=== PATIENT | female | born 1970 | race Caucasian/White ===

== ENCOUNTER 2018-05-10 18:05 | Outpatient (CLI) | payer OTHER ==
--- NOTE | 2018-05-10 20:16 | RAD ---
SUPINE ABDOMEN: 05/10/18 INDICATION: IUD localization. Bowel gas pattern unremarkable. There is no evidence of IUD or other radiopaque foreign body. Osseous structures are unremarkable. IMPRESSION: Unremarkable exam. No evidence of IUD or other radiopaque foreign bodies. POS: [facility]
== END 2018-05-10 18:06 | disposition home or self-care (01) ==
LOC: SCSRAD 18:05
PROVIDERS: ATTEND Obstetrics & Gynecology
DX: Z30.9 Encounter for contraceptive management, unspecified (principal); N93.9 Abnormal uterine and vaginal bleeding, unspecified
CPT/HCPCS: 74018

== ENCOUNTER 2018-06-02 00:27 | Outpatient (CLI) | payer OTHER ==
[2018-06-02 16:17] LABS: BHCG - Serum Negative (NEGATIVE); Pregs Control Background? CLEAR/WHITE (CLR/WHITE); Pregs Control Bar Appear? YES (CONTROL BAR)
== END 2018-06-02 00:28 | disposition home or self-care (01) ==
LOC: LABBT 00:27
PROVIDERS: ATTEND Obstetrics & Gynecology
DX: Z01.812 Encounter for preprocedural laboratory examination (principal)
CPT/HCPCS: 84703

== ENCOUNTER 2018-06-06 07:56 | Inpatient (IN) | payer OTHER ==
[2018-06-02 15:22] VITALS: BMI 37.4
[2018-06-02 16:12] LABS: Hemoglobin 10.3 g/dL (12.0-16.0); Mean Corpuscular HGB CONC 33.2 g/dL (32.0-36.0); Mean Corpuscular Hemoglobin 29.5 pg (27.0-31.0); Mean Corpuscular Volume 88.9 fL (78.0-98.0); Mean Platelet Volume 8.5 fL (7.4-10.4); Platelet Count 319 thou/uL (130-400); RBC Distribution Width 13.7 % (11.5-14.5); White Blood Cell (WBC) Count 7.7 thou/uL (4.8-10.8)
[2018-06-06] MEDS ORDERED: Gabapentin 300 MG CAP ONE (08:16)
[2018-06-06] MEDS ORDERED: Famotidine/PF 20 mg/2ml Vial ONE (08:17)
[2018-06-06] MEDS ORDERED: Oxymetazoline HCl 0.05% ( 15 ML ) ONE (08:17)
[2018-06-06] MEDS ORDERED: Acetaminophen 650 MG/20.3 ML UDCUP ONE (08:18)
[2018-06-06] MEDS ORDERED: CeleCOXIB 100 MG CAP ONE (08:18)
[2018-06-06 11:35] LABS: #Basophils 0.1 thou/uL (0.0-0.2); #Eosinphils 0.1 thou/uL (0.0-0.7); #Monocytes 0.4 thou/uL (0.11-0.59); #Neutrophils 3.7 thou/uL (1.40-6.50); %Basophils 0.9 % (0.0-1.0); %Lymphocytes 31.9 % (21.0-51.0); %Monocytes 6.8 % (0.0-10.0); %Neutrophils 58.3 % (42.0-75.0); Hemoglobin 9.8 g/dL (12.0-16.0); Mean Corpuscular HGB CONC 32.7 g/dL (32.0-36.0); Mean Corpuscular Volume 88.9 fL (78.0-98.0); Mean Platelet Volume 8.2 fL (7.4-10.4); Platelet Count 301 thou/uL (130-400); RBC Distribution Width 13.5 % (11.5-14.5); Red Blood Cell (RBC) Count 3.38 mill/uL (4.20-5.40); White Blood Cell (WBC) Count 6.3 thou/uL (4.8-10.8)
[2018-06-06] MEDS ORDERED: Bupivacaine HCl 0.5%/Epinephrine 1:200,000/PF 30 ml Vial ONE (11:37)
[2018-06-06] MEDS ORDERED: Fentanyl 100 MCG/2 ML VIAL ONE ×3 (11:43→14:15)
[2018-06-06] MEDS ORDERED: Midazolam HCl 2 mg/2 ml Vial ONE (11:44)
[2018-06-06] MEDS ORDERED: Zolpidem Tartrate 5 MG TAB PO PRN (13:53)
[2018-06-06] MEDS ORDERED: Ondansetron PF 4 MG/2 ML Vial IVP PRN (13:53)
[2018-06-06] MEDS ORDERED: Bisacodyl 10 MG SUPP PR PRN (13:53)
[2018-06-06] MEDS ORDERED: Simethicone Chewable 80 MG TAB PO PRN (13:53)
[2018-06-06] MEDS ORDERED: Promethazine HCl 25 MG/ML VIAL IM PRN (13:53)
[2018-06-06] MEDS ORDERED: HYDROcodone/Acetaminophen 5/325 mg Tablet PO PRN ×2 (13:53)
[2018-06-06] MEDS ORDERED: Acetaminophen 325 MG TAB PO PRN (13:53)
[2018-06-06] MEDS ORDERED: diphenhydrAMINE 25 MG CAP PO PRN (13:53)
[2018-06-06] MEDS ORDERED: Promethazine HCl 25 MG/ML VIAL ONE (14:04)
[2018-06-06] MEDS ORDERED: Lidocaine 1% PF 5 ML VIAL ONE (16:44)
[2018-06-06] MEDS ORDERED: diphenhydrAMINE 50 MG/ML VIAL ONE (16:44)
[2018-06-06] MEDS ORDERED: PROPOFOL 200 MG/20 ML VIAL ONE (16:44)
[2018-06-06] MEDS ORDERED: Rocuronium Bromide 10 MG/ML (10ML VIAL) ONE (16:44)
[2018-06-06] MEDS ORDERED: Metoclopramide HCl 10 MG/2 ML VIAL ONE (16:44)
[2018-06-06] MEDS ORDERED: Glycopyrrolate 0.2 MG/ML 5 ML SYRINGE ONE (16:44)
[2018-06-06] MEDS ORDERED: Ondansetron PF 4 MG/2 ML Vial ONE (16:44)
[2018-06-06] MEDS: Ibuprofen 800 MG TAB PO SCH ×2 (18:22→22:35)
[2018-06-06] MEDS: Lactated Ringer's 1,000 ML IV SCH (20:23)
[2018-06-07 05:26] VITALS: TEMP 98.3
[2018-06-07] MEDS: Ibuprofen 800 MG TAB PO SCH (06:19)
[2018-06-07] MEDS: Lactated Ringer's 1,000 ML IV SCH ×2 (07:24→07:26)
--- NOTE | 2018-06-07 07:44 | OP ---
DATE OF PROCEDURE: 06/06/2018 PREOPERATIVE DIAGNOSES: 1. Abnormal uterine bleeding, suspected adenomyosis. 2. Anemia. POSTOPERATIVE DIAGNOSES: 1. Abnormal uterine bleeding, suspected adenomyosis. 2. Anemia. PROCEDURES PERFORMED: Robotic-assisted total laparoscopic hysterectomy with bilateral salpingectomy. IMPORT EXPORT CLERK: Lourdes Banegas MD COMPLICATIONS: None. ESTIMATED BLOOD LOSS: 50 mL. URINARY OUTPUT: 100 mL. IV FLUIDS: 1200 mL. ANESTHESIA: General. SPECIMENS: Uterus, cervix, and bilateral fallopian tubes. FINDINGS: Normal-appearing external genitalia. Normal vaginal and cervical epithelium, 8 to 9 cm uterus. Moderate amount of retrograde menses noted in the peritoneal cavity in the cul-de-sac approximately 15 to 20 mL. Normal-appearing bilateral fallopian tubes and ovaries. Hemostasis at the completion of procedure and moderate adhesions from the dome of the bladder to the lower uterine segment. INDICATIONS FOR THE PROCEDURE: Ms. Maritza Kennedy is a 47-year-old, G1 , P1, who presented to clinic with history of new onset abnormal uterine bleeding. The patient underwent an ultrasound was suggestive of possible adenomyosis, otherwise normal in appearance and she underwent endometrial biopsy with normal pathology. The patient underwent medical management, which failed and desired definitive surgical management with a hysterectomy. The patient was counseled and consented for robotic-assisted total laparoscopic hysterectomy with bilateral salpingectomy. DESCRIPTION OF PROCEDURE: The patient was brought to the operating room. She was placed under general anesthesia. The patient was placed in dorsal lithotomy position using Greyson stirrups. Her arms were appropriately tucked. She was prepped and draped in a sterile fashion. An official time-out was performed. She was given Ancef 2 g for surgical prophylaxis. A single-sided speculum was placed in the vagina, and the anterior aspect of the cervix was grasped using single-tooth tenaculum, and the uterus was sounded to approximately 8.5 cm. A HARVEY manipulator was then appropriately secured using an 8 cm length and 4 cm cup. The bladder was drained, and Foster catheter with a backfill syringe was then placed. Gloves were exchanged, and attention was turned to the abdomen. A supraumbilical incision was made using the scalpel, and the Veress needle was inserted into the peritoneal cavity noting a normal pressure. A 12-mm trocar was then inserted at this site. The robotic camera was inserted, and the patient was placed in Trendelenburg position, noting the findings above. Surface Plate Inspector ports were then placed using two 8 mm robotic ports and an 11 mm speech therapy assistant port. An 8 and 11 were placed on the right aspect of the abdomen, and an 8 mm port was placed in the left aspect of the abdomen. All were placed using local anesthetic and with direct visualization, the robot was then appropriately docked to the patient. The monopolar scissors and bipolar fenestrated forceps were then placed under direct visualization. The hysterectomy was begun first by performing left salpingectomy, working from distal to proximal end completely removing the fallopian tube. The left round ligament was then identified, coagulated, and transected allowing entrance into the broad ligament. The left utero-ovarian ligament was coagulated and transected as well. The posterior aspect of the peritoneum was then undermined and transected down to the level of the uterosacral ligament, identifying the course of the ureter during this process. The dense adhesions on the anterior aspect to the bladder were then meticulously dissected on the left aspect using a blunt and sharp dissection. Attention was then turned over to the right aspect, where a right salpingectomy was also performed from distal to proximal completely removing the fallopian tube and the right round ligament was also coagulated and transected allowing entrance into the broad ligament, and the right utero-ovarian ligament was also coagulated and transected creating hemostasis, and the posterior leaf of the peritoneum was also reflected down toward the level of the uterosacral ligament, allowing the lateral reflection of the ureter. The attention was then turned to the anterior aspect, where the scar tissue was located from her previous . Meticulous dissection was performed, and the bladder was back filled twice to allow for delineation of the bladder dome versus adhesive disease. Once the adhesions were transected, the cervicovaginal junction was much easier to identify. The uterine vessels were then skeletonized bilaterally. The left uterine vessels were then coagulated multiple times and transected and the same was performed to the right uterine vessels. The colpotomy was performed in circumferential fashion completely the vagina from the cervical tissue. The uterus and cervix were then delivered through the vagina along with the HARVEY manipulator. The pelvis was irrigated and cleared of all clot and debris. There were some small areas of bleeding along the left aspect required additional cautery. The cuff was then closed in a running fashion using 2-0 Stratafix suture. The needle was removed. The pelvis was then irrigated and cleared of all clot and debris. The instruments were removed. The robot was undocked from the patient. The abdomen was deflated. The patient was taken out of Trendelenburg position, and the trocars were removed. The fascia of the 12 mm camera port was then closed using a [id number] stitch with 0 Vicryl, and the skin was closed using 4-0 Monocryl and Dermabond. The vagina was evaluated noting hemostasis, and the patient was then placed back in supine position. She was extubated without difficulty and transferred to the recovery room in hemodynamically stable condition. All counts were correct x2. Job ID: [id number] MTDD
[2018-06-07 07:45] VITALS: BP 136/70
[2018-06-07 07:59] LABS: #Basophils 0.1 thou/uL (0.0-0.2); #Eosinphils 0.2 thou/uL (0.0-0.7); #Lymphocytes 2.2 thou/uL (1.20-3.40); #Monocytes 0.6 thou/uL (0.11-0.59); %Basophils 0.7 % (0.0-1.0); %Eosinophils 1.9 % (0.0-10.0); %Lymphocytes 27.2 % (21.0-51.0); %Monocytes 7.9 % (0.0-10.0); %Neutrophils 62.3 % (42.0-75.0); Mean Corpuscular HGB CONC 33.2 g/dL (32.0-36.0); Mean Corpuscular Hemoglobin 29.4 pg (27.0-31.0); Mean Corpuscular Volume 88.7 fL (78.0-98.0); Mean Platelet Volume 7.6 fL (7.4-10.4); Platelet Count 271 thou/uL (130-400); RBC Distribution Width 13.6 % (11.5-14.5); Red Blood Cell (RBC) Count 3.07 mill/uL (4.20-5.40); White Blood Cell (WBC) Count 8.1 thou/uL (4.8-10.8)
[2018-06-07 08:15] LABS: Anion Gap 11 mmol/L (10-20); BUN (Urea Nitrogen) 8 mg/dL (7.0-18.7); Calc. Creatinine Clearance 126 mL/min (70-130); Calcium 8.7 mg/dL (7.8-10.44); Carbon Dioxide 27 mmol/L (22-29); Chloride 104 mmol/L (98-107); Estimated GFR-MDRD 68; Glucose 114 mg/dL (70-105); Potassium 4.1 mmol/L (3.5-5.1); Sodium 138 mmol/L (136-145)
--- NOTE | 2018-06-07 11:51 | PRG ---
DATE OF SERVICE: 06/07/2018 HISTORY OF PRESENT ILLNESS: Postoperative day #1, status post robotic-assisted total laparoscopic hysterectomy with bilateral salpingectomy. SUBJECTIVE: The patient reports mild pain overnight and controlled with oral medications. She denies any vaginal bleeding. The patient is ambulating, voiding, and passing flatus and has also had a small bowel movement. She denies any complaints this morning. Denies any chest pain, palpitations, dizziness, or other concerns. OBJECTIVE: VITAL SIGNS: Blood pressure 136/70, pulse is 64, respiratory rate is 20, oxygen saturation is 98% on room air, and temperature is 98.3 Fahrenheit. GENERAL: No acute distress. CARDIOVASCULAR: Regular rate and rhythm. RESPIRATORY: Nonlabored breathing. Clear to auscultation bilaterally. ABDOMEN: Soft, mild distention in upper abdomen as appropriate for laparoscopic surgery. Normoactive bowel sounds in all four quadrants. Incisions are clean, dry, and intact with Dermabond in place. Mild tenderness to palpation throughout as expected postoperatively. EXTREMITIES: No edema. Negative Homans. Negative cords. LABORATORY DATA: Hemoglobin is 9, hematocrit is 27.3, platelet count is 271. Creatinine is 0.89. ASSESSMENT: Postoperative day #1, status post robotic-assisted total laparoscopic hysterectomy with bilateral salpingectomy. Doing well. PLAN: Plan for discharge home today as she is meeting all requirements for discharge. Pain medications prescribed and iron supplementation prescribed for mild anemia as expected postoperatively. Job ID: [id number] MTDD
--- NOTE | 2018-06-07 12:07 | DIS ---
DATE OF ADMISSION: 06/06/2018 DATE OF DISCHARGE: 06/07/2018 ADMISSION DIAGNOSIS: Postoperative pain control, status post robotic-assisted total laparoscopic hysterectomy with bilateral salpingectomy. DISCHARGE DIAGNOSIS: Postoperative pain control, status post robotic-assisted total laparoscopic hysterectomy with bilateral salpingectomy. ADMISSION AND DISCHARGE PHYSICIAN: Digna Day DO BRIEF HOSPITAL COURSE: Ms. Maritza Kennedy is a 47-year-old, G1, P1, status post robotic-assisted total laparoscopic hysterectomy with bilateral salpingectomy due to abnormal uterine bleeding with suspicion for uterine adenomyosis. The patient also had anemia prior to her surgery. The patient's intraoperative and postoperative courses were uncomplicated. She is meeting all requirements for discharge. Her vital signs and labs are stable. She does have a slight anemia, which she had preoperatively, and this is expected with her surgery performed yesterday. MEDICATIONS: 1. [place] 5/325 one every 6 hours p.r.n. pain, #30, zero refills. 2. Motrin 800 mg one every 8 hours p.r.n. pain, #60, zero refills. 3. Ferrous sulfate 325 mg one tablet twice a day, #60 with one refill. DIET: Regular. ACTIVITY RESTRICTIONS: Pelvic rest. No heavy pushing, pulling, or lifting for 6 weeks. FOLLOWUP: Follow up in 2 weeks at [facility] [place]. CODE STATUS: Full. Job ID: [id number] [facility]
== END 2018-06-07 09:48 | disposition home or self-care (01) | DRG 743 ==
LOC: SDC 07:56 → EDSTATUS 15:30 → 3SE 15:59
PROVIDERS: ADMIT Obstetrics & Gynecology; ATTEND Obstetrics & Gynecology
PROC: 0UT94ZZ Resection of Uterus, Percutaneous Endoscopic Approach (ICD-10-PCS; principal; 2018-06-06)
PROC: 0UT74ZZ Resection of Bilateral Fallopian Tubes, Percutaneous Endoscopic Approach (ICD-10-PCS; 2018-06-06)
PROC: 8E0W4CZ Robotic Assisted Procedure of Trunk Region, Percutaneous Endoscopic Approach (ICD-10-PCS; 2018-06-06)
DX: N80.0 Endometriosis of uterus (principal); D64.9 Anemia, unspecified
CPT/HCPCS: 36415; 80048; 85025; 85027; 86850; 86900; 86901; 88307; J0131; J0670; J1200; J2001; J2250; J2405; J2550; J2704; J2765; J3010; S0028